=== PATIENT | male | born 1995 | race Caucasian/White ===

== ENCOUNTER 2024-11-27 16:30 | Emergency (ER) | payer OTHER, MEDICAID, SELFPAY ==
[2024-11-27 16:31] VITALS: BP 144/95; PULSE 91; RESP 18; TEMP 36.7; O2SAT 100; BMI 37.1
--- NOTE | 2024-11-27 16:38 | CT_ITS ---
PROCEDURE: BRAIN/HEAD WITHOUT CONTRAST 11/27/2024 REASON FOR EXAM: PAIN CONFUSION TRAUMA TECHNIQUE: BRAIN/HEAD WITHOUT CONTRAST Coronal and Sagittal reconstruction series were provided. One or more dose reduction techniques were used (e.g., Automated exposure control, adjustment of the mA and/or kV according to patient size, use of iterative reconstruction technique. RADIATION DOSE SUMMARY: DLP: 864 mGycm COMPARISON: None FINDINGS: There is no acute infarct, intracranial hemorrhage, or mass effect. There is no hydrocephalus or significant midline shift. No acute, depressed calvarial fractures. No large scalp hematomas. CT/Brain/Head without Contrast IMPRESSION: No acute intracranial process. Reading Location: [id number]
--- NOTE | 2024-11-27 16:38 | CT_ITS ---
PROCEDURE: BRAIN/HEAD WITHOUT CONTRAST 11/27/2024 REASON FOR EXAM: PAIN CONFUSION TRAUMA TECHNIQUE: BRAIN/HEAD WITHOUT CONTRAST Coronal and Sagittal reconstruction series were provided. One or more dose reduction techniques were used (e.g., Automated exposure control, adjustment of the mA and/or kV according to patient size, use of iterative reconstruction technique. RADIATION DOSE SUMMARY: DLP: 864 mGycm COMPARISON: None FINDINGS: There is no acute infarct, intracranial hemorrhage, or mass effect. There is no hydrocephalus or significant midline shift. No acute, depressed calvarial fractures. No large scalp hematomas. CT/Brain/Head without Contrast IMPRESSION: No acute intracranial process. Reading Location: [id number]
--- NOTE | 2024-11-27 17:04 | EDS_ITS ---
HPI History of Present Illness Chief Complaint: Head Injury [facility] Medical History Gallstone pancreatitis Pancreatitis History of back problems Home Medications ?Medication ?Instructions ?Recorded ?Last Taken ?Type acetaminophen 325 mg capsule 325 mg PO ONCE PRN Unknown History (Tylenol) Allergy/AdvReac Type Severity Reaction Status Date / Time No Known Allergies Allergy Verified 11/27/24 16:34 Family History (Updated 03/09/22 @ 15:[address] Susan Contreras MD) Grandmother Alcoholism Arthritis Grandfather Alcoholism Anxiety Mother Alcoholism Suicide attempt Surgical History History of cholecystectomy Social History (Updated 03/09/22 @ 15:[address] Susan Contreras MD) household members: family current occupational status: employed current occupation: grocery store Smoking Status: Never smoker Electronic Cigarette Use: not used alcohol intake: never substance use type: does not use what type of physical activity do you participate in: none do you feel safe at home: Yes EXAM Physical Exam Const Vital Signs: 11/27/24 16:31 11/27/24 17:22 11/27/24 17:37 Temperature 98.1 F 97.9 F Temperature Source Oral Pulse Rate 91 85 Respiratory Rate 18 16 Respiratory Effort Normal Non-Labored Respiratory Depth Normal Respiratory Pattern Normal Blood Pressure 144/95 H 134/78 H Blood Pressure Mean 111 96 Pulse Ox 100 97 Oxygen Delivery Method Room Air Room Air [facility] MDM MDM Narrative Medical decision making narrative: HISTORY OF PRESENT ILLNESS: Chief complaint: Head injury 29-year-old male notes he suffered a head injury yesterday. Notes he was at work when a frozen box of food fell on his head. He notes today he is more confused has a headache. No blood thinner use noted. No loss of consciousness noted. no headache red flag REVIEW OF SYSTEMS: Pertinent positives: Headache, confusion Pertinent negatives: Vomiting PHYSICAL EXAM: Nursing triage notes reviewed, Vital signs reviewed Primary Survey Airway: Intact Breathing: Bilateral breath sounds Circulation: Palpable bilateral femorals, Palpable bilateral radial, Palpable bi lateral DP and Palpable bilateral PT Disability / Spine precautions GCS Score: Eye Openin Verbal Response: 5 Motor Response: 6 Secondary Survey Constitutional: Please see MDM Head: Atraumatic, Midface stable, NO jaw malocclusion, No Cephalohematoma, and No Lacerations noted Eye: Pupils equal round and reactive to light, Extraocular muscles intact and No periorbital ecchymosis or stepoff, no evidence of entrapment ENT: Oropharynx clear, no lacerations, no hemotympanum, no raccoon eyes or bellamy sign Cervical spine / Neck: No cervical spine bony tenderness, crepitance, or stepoff deformity Trachea midline Lungs: Clear to auscultation, No asymmetric rise and No crepitus, no flail chest Cardiac: Regular rate and rhythm and No murmurs Abdomen: Soft, Nontender and No rebound Pelvis: Pelvis stable to compression : No evidence of genital injury Back: No midline bony tenderness to thoracic/lumbar/sacral spines Neuro: alert and oriented x3, neuro exam at baseline, cranial nerves II through XII are intact. No pain with extraocular muscle movement. There is negative test of skew. 5 of 5 strength in upper and lower extremities in flexion extension. Intact sensation to light touch in upper and lower extremity dermatomes. No truncal or extremity ataxia. No dysdiadochokinesia. Normal gait. 2+ reflexes in upper and lower extremities. No meningeal signs. Negative Babinski. NIH of 0. Psych: Normal affect Nursing triage notes reviewed, Vital signs reviewed MEDICAL DECISION MAKING: Chief Complaint: please see HPI External records reviewed: Reviewed prior imaging studies: No recent imaging of the brain noted Factors affecting care: none Social determinants of health: none History obtained from others: none Consults: none [facility] Narrative: The patient was initially hemodynamically stable, afebrile and nontoxic- appearing. Primary secondary trauma surveys concern for intracranial abnormalities. I considered the following differential diagnosis: ICH, skull fracture, cervical spine fracture There is no focal neurologic deficit present, no midline spinal tenderness, no altered level conscious, no intoxication, no distracting injury. Nexus criteria suggest no need for advanced imaging of the cervical spine. I obtained a CT scan of the brain to further determine if the patient was suffering from a life-threatening etiology. ALL IMAGES (IF OBTAINED) HAVE BEEN PERSONALLY REVIEWED AND INTERPRETED BY MYSELF. CT scan of the brain was read as negative by radiology. The patient is likely suffered from a concussion. Gave concussion information. Gave strict return precautions. Recommended Tylenol ibuprofen at home. Instructed the patient try and avoid further head injury if possible. Discussed follow-up instructions. The patient and/or family, caregivers express understanding. The patient and/or family, caregivers agrees with the plan. Shared decision making: I will have a discussion with the patient and or visitors regarding risk/benefits of further testing or admission. They will be made aware of of the risk/benefits inherent in this decision they will be given the opportunity to voice understanding. Total critical care time today provided was at least 0 minutes. This excludes separately billable procedures. Critical care time (if documented) is secondary to the patient having high probability of clinically significant/life threatening deterioration in the patient's condition which required my urgent intervention. Impression: 1. Closed head injury 2. Concussion Dispo: Discharge home This note was generated with [employer] software. It may contain incorrect words, spelling, and punctuation that were not noted in review of the chart prior to signing. Radiography Chest X-Ray - ED: Read by ED Physician Diagnostic Testing: Clinical Impression(s) from Imaging Studies Brain CT 11/27/24 16:38 IMPRESSION: No acute intracranial process. Reading Location: [facility] Discharge Plan Triage Chief Complaint: Head Injury ED Provider: Scout Phillips Dx/Rx/DC Orders Instructions: ED Concussion Prescriptions: No Action acetaminophen [Tylenol] 325 mg capsule 325 mg PO ONCE PRN Primary Care Provider: Care Physician,No Primary Activity Restrictions/Additional Instructions: Thank you for trusting us with your care today! The CT scan of your brain was negative for signs of a fractured/broken skull, bleeding in the brain. You are likely suffering from a concussion given negative CT scan of the brain. Your symptoms should resolve with time. Please try not to participate in activities that you suspect to have any head injury such as contact sports. Please take Tylenol (2 pills, 650 mg), ibuprofen (2 pills, 400 mg) every 6 hours as needed for pain and fever control. Please return to the emergency department if your symptoms change or worsen. Please follow with your primary care physician for further outpatient evaluation and management. Print Language: Albanian Disposition Disposition: Home, Self Care Discharge Date/Time: 11/27/24 17:38
[2024-11-27 17:37] VITALS: BP 134/78; PULSE 85; RESP 16; TEMP 36.6; O2SAT 97
== END 2024-11-27 17:38 | disposition home or self-care (01) ==
LOC: ED 17:32
PROVIDERS: Emergency Provider Emergency Medicine; Visit Provider Emergency Medicine
DX: S06.0X0A Concussion without loss of consciousness, initial encounter (principal); Z90.49 Acquired absence of other specified parts of digestive tract; W22.8XXA Striking against or struck by other objects, initial encounter; Y99.0 Civilian activity done for income or pay; Y92.89 Other specified places as the place of occurrence of the external cause
CPT/HCPCS: 70450; 99282